=== PATIENT | female | born 1960 | race Hispanic/Latino ===

== ENCOUNTER 2020-02-08 08:18 | Outpatient (CLI) | payer OTHER ==
--- NOTE | 2020-02-08 08:53 | MMO ---
Bilateral MAMMO Bilat Diag [facility]DI+[facility]. CLINICAL HISTORY: Patient is 60 years old and is seen for diagnostic exam and pain in both breasts. The patient has no family history of breast cancer. The patient has no personal history of cancer. The patient has a history of right Excisional Biopsy at age 36 - benign. VIEWS: The views performed were: bilateral craniocaudal with tomosynthesis; bilateral mediolateral oblique with tomosynthesis; and bilateral mediolateral with tomosynthesis. FILMS COMPARED: The present examination has been compared to prior imaging studies performed at [facility] on 01/14/2019, at [facility] on 02/08/2020, and at [facility] on 12/31/2017. This study has been interpreted with the assistance of computer-aided detection. MAMMOGRAM FINDINGS: There are scattered fibroglandular densities. There is a post-surgical scar seen in the right breast. There are no suspicious masses, suspicious calcifications, or new areas of architectural distortion. IMPRESSION: THERE IS NO MAMMOGRAPHIC EVIDENCE OF MALIGNANCY. A ROUTINE FOLLOW-UP MAMMOGRAM IN 1 YEAR IS RECOMMENDED. THE RESULTS OF THIS EXAM WERE SENT TO THE PATIENT. ACR BI-RADS Category 2 - Benign finding MAMMOGRAPHY NOTE: 1. A negative mammogram report should not delay a biopsy if a dominant of clinically suspicious mass is present. 2. Approximately 10% to 15% of breast cancers are not detected by mammography. 3. Adenosis and dense breasts may obscure an underlying neoplasm. Reported by: LOVELY ESQUIVEL MD Electonically Signed: [id number]
== END 2020-02-08 08:19 | disposition home or self-care (01) ==
LOC: BICMAMMO 08:18
PROVIDERS: ATTEND Family Medicine
DX: N64.4 Mastodynia (principal)
CPT/HCPCS: 77066; G0279

== ENCOUNTER 2021-02-09 09:56 | Outpatient (CLI) | payer OTHER | END 2021-02-09 09:57 | disposition home or self-care (01) | LOC: BICMAMMO 09:56 | PROVIDERS: ATTEND Family Medicine | DX: Z12.31 Encounter for screening mammogram for malignant neoplasm of breast (principal); Z91.89 Other specified personal risk factors, not elsewhere classified | CPT/HCPCS: 77067 ==

== ENCOUNTER 2021-04-24 17:38 | Emergency (ER) | payer OTHER ==
[2021-04-24] MEDS ORDERED: Acetaminophen 500 MG TAB ONE (19:01)
[2021-04-25 07:35] LABS: SARS-CoV-2 PCR by NAA DETECTED (NotDetected)
== END 2021-04-24 19:13 | disposition home or self-care (01) ==
LOC: ERS 17:38
DX: R09.81 Nasal congestion (principal); Z20.822 Contact with and (suspected) exposure to COVID-19; E11.9 Type 2 diabetes mellitus without complications; E78.5 Hyperlipidemia, unspecified; E78.00 Pure hypercholesterolemia, unspecified; Z79.899 Other long term (current) drug therapy
CPT/HCPCS: 99283; U0003; U0005

== ENCOUNTER 2021-11-14 09:21 | Outpatient (CLI) | payer OTHER | END 2021-11-14 09:22 | disposition home or self-care (01) | LOC: BICMAMMO 09:21 | PROVIDERS: ATTEND Orthopaedic Surgery | DX: N64.4 Mastodynia (principal) | CPT/HCPCS: 77066; G0279 ==